=== PATIENT | female | born 1980 | race Caucasian/White ===

== ENCOUNTER → 2016-07-06 | Outpatient (CLI) | payer BC ==
[~2016-07-06] VITALS: Ht 167.6 cm; Wt 95.0 kg
[~2016-07-06] MED LIST: ALBUTEROL SULF8.5 GM IH; ALDOMET PO; ALDOMET250 MG PO; ASPIRIN325 MG PO; BLOOD PRESURE; CLINDAMYCIN HC300 MG PO; FLEXERIL10 MG PO; IBUPROFEN800 MG PO; LYRICA50 MG PO; MACROBID100 MG PO; MOBIC7.5 MG PO; MOTRIN800 MG PO; NAPROSYN500 MG PO; NOHOMEMEDS; NORCO 5/3251 TABLET PO; PERCOCET 5/31 TABLET PO; PHENERGAN-CODE120 ML PO; PRENATAL TABLE1 EAC3 PO; PRINIVIL10 MG PO; PROAIR HFA8.5 GM; PROAIR HFA8.5 GM IH; PROTONIX40 MG PO; SKELAXIN800 MG PO; SYMBICORT60 INHALAT IH; TRAMADOL HCL50 MG PO; ULTRAM50 MG PO; ZOFRAN4 MG PO
[2016-07-06 14:01] VITALS: BP 156/82
== END | disposition home or self-care (01) ==
LOC: IVINF 13:55
DX: O36.0990 Maternal care for other rhesus isoimmunization, unspecified trimester, not applicable or unspecified (principal); Z3A.00 Weeks of gestation of pregnancy not specified
CPT/HCPCS: 96372; J2790

== ENCOUNTER 2016-09-14 16:23 | Inpatient (IN) | payer BC ==
[~2016-09-14] VITALS: Ht 167.6 cm; Wt 93.0 kg
[2016-09-14 16:46] VITALS: BP 144/89
[2016-09-14 17:27] VITALS: BP 136/79
[2016-09-14 17:45] LABS: EOSINOPHIL (%) 0.6 % (0-5); EOSINOPHIL COUNT 0.1 K/uL (0-0.3); HEMATOCRIT 35.6 % (36.0-46.0); IMMATURE GRANULOCYTE (%) 0.6 % (0.0-0.7); IMMATURE GRANULOCYTE COUNT 0.1 K/uL; LYMPHOCYTE COUNT 2.5 K/uL (1.0-2.8); MCH 30.1 PG (29.0-34.0); MCHC 34.3 G/DL (30.0-36.0); MCV 87.9 FL (83-99); MONOCYTE (%) 9.2 % (3-12); MONOCYTE COUNT 1.2 K/uL (0-0.8); NEUTROPHIL (%) 69.7 % (45-76); PLATELET COUNT 229 K/uL (156-360); RBC DIS.WIDTH-CV 13.4 % (11.8-14.6); RED BLOOD COUNT 4.05 M/uL (3.80-5.20); WHITE BLOOD COUNT 12.9 K/uL (4.1-10.2)
[2016-09-14 17:51] LABS: ANION GAP 11 MEQ/L (2-14); CHLORIDE 106 MEQ/L (99-109); POTASSIUM 3.2 MEQ/L (3.7-5.4); SAMPLE HEMOLYSIS CHECK 0; SAMPLE ICTERIC CHECK 0; SAMPLE LIPEMIA CHECK 1; SODIUM 138 MEQ/L (136-147); TOTAL BILIRUBIN 0.3 MG/DL (0.0-1.0)
[2016-09-14 17:57] VITALS: BP 128/87
[2016-09-14 17:57] LABS: ALKALINE PHOSPHATASE 189 IU/L (3-129); GFR ESTIMATE (CALCULATED) > 59 mL/min/; GLUCOSE 99 mg/dL (70-99); LACTATE DEHYDROGENASE 128 IU/L (20-246); UREA NITROGEN (BUN) 6 mg/dL (9-23); URIC ACID 4.4 mg/dL (3.1-9.2)
[2016-09-14 18:10] LABS: UR CREATININE CONCENTRATION 136.2 MG/DL
[2016-09-14 18:27] VITALS: BP 128/82
[2016-09-14 18:57] VITALS: BP 127/84
[2016-09-14 21:49] VITALS: BP 135/97
[2016-09-15] VITALS (28 sets, daily range): BP systolic 100–171; BP diastolic 58–106
[2016-09-16] VITALS: BP 138/85
[2016-09-16 04:00] VITALS: BP 136/87
[2016-09-16 07:11] VITALS: BP 126/87
[2016-09-16 07:38] LABS: BASOPHIL COUNT 0.1 K/uL (0-0.1); EOSINOPHIL (%) 2.2 % (0-5); EOSINOPHIL COUNT 0.3 K/uL (0-0.3); HEMATOCRIT 32.6 % (36.0-46.0); IMMATURE GRANULOCYTE (%) 0.6 % (0.0-0.7); IMMATURE GRANULOCYTE COUNT 0.1 K/uL; MCHC 32.8 G/DL (30.0-36.0); MCV 88.3 FL (83-99); MEAN PLAT.VOLUME 11.6 uM^3 (9.5-12.4); MONOCYTE (%) 9.6 % (3-12); MONOCYTE COUNT 1.2 K/uL (0-0.8); NEUTROPHIL (%) 63.7 % (45-76); PLATELET COUNT 189 K/uL (156-360); RBC DIS.WIDTH-CV 13.2 % (11.8-14.6); RBC DIS.WIDTH-SD 43.2 % (39-53); RED BLOOD COUNT 3.69 M/uL (3.80-5.20); WHITE BLOOD COUNT 12.5 K/uL (4.1-10.2)
[2016-09-16] MEDS ORDERED: IBUPROFEN800 MG PO (09:28)
[2016-09-16 12:07] VITALS: BP 145/90
[2016-09-16 13:00] VITALS: BP 134/92
== END 2016-09-16 16:33 | disposition home or self-care (01) | DRG 775 ==
LOC: LDRP-OP 16:23 → 2WEST 16:26 → LDRP-OP 10-25 18:38
PROVIDERS: Advanced Practice Midwife
PROC: 3E033VJ Introduction of Other Hormone into Peripheral Vein, Percutaneous Approach (ICD-10-PCS; 2016-09-14)
PROC: 0HQ9XZZ Repair Perineum Skin, External Approach (ICD-10-PCS; principal; 2016-09-15)
PROC: 10907ZC Drainage of Amniotic Fluid, Therapeutic from Products of Conception, Via Natural or Artificial Opening (ICD-10-PCS; principal; 2016-09-15)
PROC: 10E0XZZ Delivery of Products of Conception, External Approach (ICD-10-PCS; principal; 2016-09-15)
PROC: 00HU33Z Insertion of Infusion Device into Spinal Canal, Percutaneous Approach (ICD-10-PCS; 2016-09-15)
PROC: 3E0R3CZ (ICD-10-PCS; 2016-09-15)
DX: O70.0 First degree perineal laceration during delivery (principal); O14.94 Unspecified pre-eclampsia, complicating childbirth; O99.214 Obesity complicating childbirth; E66.9 Obesity, unspecified; O99.52 Diseases of the respiratory system complicating childbirth; J45.909 Unspecified asthma, uncomplicated; M79.7 Fibromyalgia; O99.354 Diseases of the nervous system complicating childbirth; G43.909 Migraine, unspecified, not intractable, without status migrainosus; O99.334 Smoking (tobacco) complicating childbirth; F17.200 Nicotine dependence, unspecified, uncomplicated; Z68.30 Body mass index [BMI] 30.0-30.9, adult; Z3A.39 39 weeks gestation of pregnancy; Z37.0 Single live birth; Z79.82 Long term (current) use of aspirin
CPT/HCPCS: 80053; 82570; 83615; 84156; 84550; 85025; 85025 91; C1755; G0378; J0595; J3010; J7120; Q0169

== ENCOUNTER 2016-10-19 20:03 | Emergency (ER) | payer BC ==
[~2016-10-19] VITALS: Ht 167.6 cm; Wt 88.8 kg
[2016-10-19 23:33] LABS: HEMATOCRIT 43.6 % (36.0-46.0); MCH 28.2 PG (29.0-34.0); MCHC 32.1 G/DL (30.0-36.0); MCV 87.9 FL (83-99); MEAN PLAT.VOLUME 10.5 uM^3 (9.5-12.4); PLATELET COUNT 258 K/uL (156-360); RBC DIS.WIDTH-CV 13.9 % (11.8-14.6); RBC DIS.WIDTH-SD 44.3 % (39-53); RED BLOOD COUNT 4.96 M/uL (3.80-5.20); WHITE BLOOD COUNT 9.6 K/uL (4.1-10.2)
[2016-10-20 00:23] LABS: CHLORIDE 107 mEq/L (99-109); POTASSIUM 3.6 mEq/L (3.7-5.4); SODIUM 141 mEq/L (136-147)
[2016-10-20 00:24] LABS: GLUCOSE 98 mg/dL (70-99)
[2016-10-20 00:26] LABS: ANION GAP 9 MEQ/L (2-14)
[2016-10-20 00:28] LABS: GFR ESTIMATE (CALCULATED) > 59 mL/min/
[2016-10-20 00:53] LABS: UREA NITROGEN (BUN) 5 mg/dL (9-23)
[2016-10-20 02:45] VITALS: BP 128/68
== END 2016-10-20 02:48 | disposition home or self-care (01) ==
LOC: EME 20:03
PROVIDERS: Emergency Medicine
DX: R22.1 Localized swelling, mass and lump, neck (principal); J45.909 Unspecified asthma, uncomplicated; F17.200 Nicotine dependence, unspecified, uncomplicated; Z90.89 Acquired absence of other organs
CPT/HCPCS: 70491; 80048; 83605; 84443; 85027; 99281; 99284

== ENCOUNTER → 2017-05-30 | Outpatient (CLI) | payer BC | END | disposition home or self-care (01) | LOC: CDC 14:49 | DX: R94.31 Abnormal electrocardiogram [ECG] [EKG] (principal) | CPT/HCPCS: 93000 ==

== ENCOUNTER → 2017-06-13 | Outpatient (CLI) | payer BC ==
[~2017-06-13] VITALS: Ht 167.6 cm; Wt 99.0 kg
[~2017-06-13] MED LIST changes: +BP MED PO
[2017-06-13 14:02] VITALS: BP 142/79
== END | disposition home or self-care (01) ==
LOC: IVINF 13:55
DX: Z34.80 Encounter for supervision of other normal pregnancy, unspecified trimester (principal); Z3A.00 Weeks of gestation of pregnancy not specified
CPT/HCPCS: 96372; J2790

== ENCOUNTER 2017-08-14 05:28 | Outpatient (CLI) | payer BC ==
[~2017-08-14] VITALS: Ht 167.6 cm; Wt 106.4 kg
[2017-08-14 05:39] VITALS: BP 136/91
[2017-08-14] MEDS ORDERED: LO-DOSE ASPIRIN81 M1 PO (05:51)
[2017-08-14] MEDS ORDERED: PROCARDIA XL30 MG PO (05:51)
[2017-08-14 06:37] LABS: BILIRUBIN NEGATIVE; BLOOD NEGATIVE; COLOR YELLOW ((YELLOW)); GLUCOSE (STRIP) NEGATIVE; KETONES NEGATIVE; LEUKOCYTES NEGATIVE; NITRITE NEGATIVE; PROTEIN (STRIP) NEGATIVE; SPECIFIC GRAVITY 1.013 (1.000-1.030); UROBILINOGEN 0.2 MG/DL (0.2-1.0)
[2017-08-14 06:55] LABS: AMPHETAMINE NEGATIVE (500 ng/mL); BARBITURATES NEGATIVE (200 ng/mL); BENZODIAZEPINES NEGATIVE (150 ng/mL); BUPRENORPHINE NEGATIVE (10 ng/mL); COCAINE NEGATIVE (150 ng/mL); METHADONE NEGATIVE (200 ng/mL); METHAMPHETAMINE NEGATIVE (500 ng/mL); OPIATES (MORPHINE) NEGATIVE (100 ng/mL); OXYCODONE NEGATIVE (100 ng/mL); PHENCYCLIDINE NEGATIVE (25 ng/mL); PROPOXYPHENE NEGATIVE (300 ng/mL); THC CANNABINOIDS NEGATIVE (50 ng/mL); TRICYCLIC ANTIDEPRESSANTS NEGATIVE (300 ng/mL)
[2017-08-14 06:56] LABS: BASOPHIL (%) 0.4 % (0-1); BASOPHIL COUNT 0.1 K/uL (0-0.1); EOSINOPHIL (%) 1.6 % (0-5); EOSINOPHIL COUNT 0.2 K/uL (0-0.3); HEMATOCRIT 34.6 % (36.0-46.0); HEMOGLOBIN 11.6 G/DL (11.9-15.5); IMMATURE GRANULOCYTE (%) 0.9 % (0.0-0.7); LYMPHOCYTE (%) 17.1 % (15-42); LYMPHOCYTE COUNT 2.2 K/uL (1.0-2.8); MCH 29.6 PG (29.0-34.0); MCHC 33.5 G/DL (30.0-36.0); MCV 88.3 FL (83-99); MONOCYTE (%) 8.8 % (3-12); MONOCYTE COUNT 1.1 K/uL (0-0.8); NEUTROPHIL (%) 71.2 % (45-76); NEUTROPHIL COUNT 9.2 K/uL (1.8-6.4); NRBC (%) 0.5 /100 WBC (0-0); PLATELET COUNT 229 K/uL (156-360); RBC DIS.WIDTH-CV 13.3 % (11.8-14.6); RBC DIS.WIDTH-SD 42.9 % (39-53); RED BLOOD COUNT 3.92 M/uL (3.80-5.20); WHITE BLOOD COUNT 12.9 K/uL (4.1-10.2)
[2017-08-14 06:59] LABS: APPEARANCE CLEAR ((CLEAR)); UCUL ADDED? NO
[2017-08-14 07:02] VITALS: BP 127/79
[2017-08-14 07:03] VITALS: BP 145/96
[2017-08-14 07:23] LABS: ALBUMIN 3.2 G/DL (3.2-4.8); ALKALINE PHOSPHATASE 169 IU/L (3-129); ALT (GPT) 15 IU/L (3-49); AST (GOT) 17 IU/L (2-34); CHLORIDE 102 MEQ/L (99-109); CREATININE 0.5 MG/DL (0.6-1.3); GFR ESTIMATE (CALCULATED) > 59 mL/min/; GLUCOSE 94 mg/dL (70-99); POTASSIUM 3.6 MEQ/L (3.7-5.4); SODIUM 137 MEQ/L (136-147); TOTAL BILIRUBIN 0.2 MG/DL (0.0-1.0); UREA NITROGEN (BUN) 4 mg/dL (9-23)
[2017-08-14 07:55] VITALS: BP 121/82
[2017-08-14 08:26] LABS: UR CREATININE CONCENTRATION 100.6 MG/DL
[2017-08-14 08:38] VITALS: BP 134/83
[2017-08-14 09:31] VITALS: BP 135/85
== END 2017-08-14 12:20 | disposition home or self-care (01) ==
LOC: LDRP-OP 05:28 → 2WEST 05:29
PROVIDERS: Advanced Practice Midwife
DX: O47.03 False labor before 37 completed weeks of gestation, third trimester (principal); O16.3 Unspecified maternal hypertension, third trimester; O99.353 Diseases of the nervous system complicating pregnancy, third trimester; G43.909 Migraine, unspecified, not intractable, without status migrainosus; O15.03 Eclampsia complicating pregnancy, third trimester; O99.283 Endocrine, nutritional and metabolic diseases complicating pregnancy, third trimester; E87.6 Hypokalemia; O09.523 Supervision of elderly multigravida, third trimester; O09.893 Supervision of other high risk pregnancies, third trimester; O99.213 Obesity complicating pregnancy, third trimester; E66.9 Obesity, unspecified; O99.513 Diseases of the respiratory system complicating pregnancy, third trimester; J45.909 Unspecified asthma, uncomplicated; Z79.82 Long term (current) use of aspirin; O99.333 Smoking (tobacco) complicating pregnancy, third trimester; F17.200 Nicotine dependence, unspecified, uncomplicated; O99.89 Other specified diseases and conditions complicating pregnancy, childbirth and the puerperium; M79.7 Fibromyalgia; Z3A.36 36 weeks gestation of pregnancy
CPT/HCPCS: 59025; 80053; 81003; 82570; 84156; 85025; G0378; J0702; J7120

== ENCOUNTER 2017-08-18 19:39 | Inpatient (IN) | payer BC ==
[~2017-08-18] VITALS: Ht 170.2 cm; Wt 101.4 kg
[~2017-08-18 19:39] MED LIST changes: +LO-DOSE ASPIRIN81 M1 PO; +PROCARDIA XL30 MG PO
[2017-08-18 20:01] VITALS: BP 164/96
[2017-08-18 20:13] VITALS: BP 151/99
[2017-08-18 20:40] VITALS: BP 137/90
[2017-08-18 21:04] LABS: BASOPHIL (%) 0.3 % (0-1); EOSINOPHIL (%) 0.6 % (0-5); EOSINOPHIL COUNT 0.1 K/uL (0-0.3); HEMATOCRIT 35.9 % (36.0-46.0); HEMOGLOBIN 12.2 G/DL (11.9-15.5); IMMATURE GRANULOCYTE (%) 0.5 % (0.0-0.7); LYMPHOCYTE (%) 16.6 % (15-42); LYMPHOCYTE COUNT 2.3 K/uL (1.0-2.8); MCH 29.1 PG (29.0-34.0); MCV 85.7 FL (83-99); MONOCYTE (%) 9.1 % (3-12); MONOCYTE COUNT 1.3 K/uL (0-0.8); NEUTROPHIL (%) 72.9 % (45-76); NEUTROPHIL COUNT 10.1 K/uL (1.8-6.4); PLATELET COUNT 258 K/uL (156-360); RBC DIS.WIDTH-CV 13.1 % (11.8-14.6); RBC DIS.WIDTH-SD 40.5 % (39-53); RED BLOOD COUNT 4.19 M/uL (3.80-5.20); WHITE BLOOD COUNT 13.8 K/uL (4.1-10.2)
[2017-08-18 21:12] LABS: ALBUMIN 3.5 g/dL (3.2-4.8); CHLORIDE 105 mEq/L (99-109); SODIUM 137 mEq/L (136-147)
[2017-08-18 21:14] LABS: GLUCOSE 101 mg/dL (70-99)
[2017-08-18 21:15] LABS: TOTAL PROTEIN 6.7 g/dL (6.4-8.3)
[2017-08-18 21:15] LABS: APPEARANCE SL.HAZY ((CLEAR)); BILIRUBIN NEGATIVE; BLOOD NEGATIVE; COLOR YELLOW ((YELLOW)); GLUCOSE (STRIP) NEGATIVE; KETONES NEGATIVE; LEUKOCYTES NEGATIVE; NITRITE NEGATIVE; PROTEIN (STRIP) 30; UROBILINOGEN 0.2 MG/DL (0.2-1.0)
[2017-08-18 21:16] LABS: TOTAL BILIRUBIN 0.2 mg/dL (0.0-1.0)
[2017-08-18 21:18] LABS: ALKALINE PHOSPHATASE 203 IU/L (3-129); CREATININE 0.6 mg/dL (0.6-1.3); GFR ESTIMATE (CALCULATED) > 59 mL/min/
[2017-08-18 21:19] LABS: UREA NITROGEN (BUN) 4 mg/dL (9-23)
[2017-08-18 21:20] LABS: AST (GOT) 22 IU/L (2-34)
[2017-08-18 21:21] LABS: ALT (GPT) 22 IU/L (3-49); URIC ACID 3.3 mg/dL (3.1-9.2)
[2017-08-18 21:23] LABS: BACTERIA RARE /HPF; EPITHELIAL CELLS 2+ /HPF; MUCUS TRACE /LPF; RED BLOOD CELLS 0-5 /HPF (0-5); UCUL ADDED? NO; WHITE BLOOD CELLS 0-5 /HPF (0-5)
[2017-08-18 21:23] LABS: AMPHETAMINE NEGATIVE (500 ng/mL); BARBITURATES NEGATIVE (200 ng/mL); BENZODIAZEPINES NEGATIVE (150 ng/mL); BUPRENORPHINE NEGATIVE (10 ng/mL); COCAINE NEGATIVE (150 ng/mL); METHADONE NEGATIVE (200 ng/mL); METHAMPHETAMINE NEGATIVE (500 ng/mL); OPIATES (MORPHINE) NEGATIVE (100 ng/mL); OXYCODONE NEGATIVE (100 ng/mL); PHENCYCLIDINE NEGATIVE (25 ng/mL); PROPOXYPHENE NEGATIVE (300 ng/mL); THC CANNABINOIDS NEGATIVE (50 ng/mL); TRICYCLIC ANTIDEPRESSANTS NEGATIVE (300 ng/mL)
[2017-08-18 21:30] VITALS: BP 134/87
[2017-08-18 22:07] VITALS: BP 147/85
[2017-08-18 22:07] LABS: LACTATE DEHYDROGENASE 216 IU/L (20-246)
[2017-08-18 22:55] VITALS: BP 141/90
[2017-08-19] VITALS (15 sets, daily range): BP systolic 96–136; BP diastolic 52–74
[2017-08-19 07:59] LABS: BASOPHIL (%) 0.3 % (0-1); BASOPHIL COUNT 0.1 K/uL (0-0.1); EOSINOPHIL (%) 0.5 % (0-5); EOSINOPHIL COUNT 0.1 K/uL (0-0.3); HEMATOCRIT 32.3 % (36.0-46.0); HEMOGLOBIN 10.7 G/DL (11.9-15.5); IMMATURE GRANULOCYTE (%) 0.4 % (0.0-0.7); LYMPHOCYTE (%) 16.8 % (15-42); LYMPHOCYTE COUNT 3.2 K/uL (1.0-2.8); MCH 28.7 PG (29.0-34.0); MCHC 33.1 G/DL (30.0-36.0); MCV 86.6 FL (83-99); MONOCYTE (%) 8.8 % (3-12); MONOCYTE COUNT 1.7 K/uL (0-0.8); NEUTROPHIL (%) 73.2 % (45-76); NEUTROPHIL COUNT 13.9 K/uL (1.8-6.4); PLATELET COUNT 237 K/uL (156-360); RBC DIS.WIDTH-CV 13.2 % (11.8-14.6); RBC DIS.WIDTH-SD 41.9 % (39-53); RED BLOOD COUNT 3.73 M/uL (3.80-5.20); WHITE BLOOD COUNT 18.9 K/uL (4.1-10.2)
[2017-08-19 08:33] LABS: ALBUMIN 2.8 G/DL (3.2-4.8); ALKALINE PHOSPHATASE 144 IU/L (3-129); ALT (GPT) 15 IU/L (3-49); AST (GOT) 17 IU/L (2-34); CHLORIDE 103 MEQ/L (99-109); CREATININE 0.5 MG/DL (0.6-1.3); GFR ESTIMATE (CALCULATED) > 59 mL/min/; GLUCOSE 105 mg/dL (70-99); POTASSIUM 3.4 MEQ/L (3.7-5.4); SODIUM 132 MEQ/L (136-147); TOTAL BILIRUBIN 0.3 MG/DL (0.0-1.0); TOTAL PROTEIN 5.3 G/DL (6.4-8.3); UREA NITROGEN (BUN) 3 mg/dL (9-23)
[2017-08-20 02:20] VITALS: BP 122/78
[2017-08-20 08:52] VITALS: BP 125/77
[2017-08-20] MEDS ORDERED: ENDOCET 5-3251 EACH PO (08:55)
[2017-08-20] MEDS ORDERED: IBUPROFEN800 MG PO (08:55)
[2017-08-20 16:47] VITALS: BP 143/87
== END 2017-08-20 19:45 | disposition home or self-care (01) | DRG 765 ==
LOC: LDRP-OP 19:39 → 2WEST 19:41 → LDRP-OP 10-12 12:50
PROVIDERS: Obstetrics & Gynecology
DX: O64.8XX0 Obstructed labor due to other malposition and malpresentation, not applicable or unspecified (principal); Z30.2 Encounter for sterilization; O11.4 Pre-existing hypertension with pre-eclampsia, complicating childbirth; O76 Abnormality in fetal heart rate and rhythm complicating labor and delivery; O22.40 Hemorrhoids in pregnancy, unspecified trimester; Z3A.36 36 weeks gestation of pregnancy; Z37.0 Single live birth; R19.7 Diarrhea, unspecified; R42 Dizziness and giddiness; O99.89 Other specified diseases and conditions complicating pregnancy, childbirth and the puerperium; M79.7 Fibromyalgia; O99.214 Obesity complicating childbirth; E66.9 Obesity, unspecified; Z68.32 Body mass index [BMI] 32.0-32.9, adult; O99.353 Diseases of the nervous system complicating pregnancy, third trimester; G43.909 Migraine, unspecified, not intractable, without status migrainosus; O99.334 Smoking (tobacco) complicating childbirth; F17.210 Nicotine dependence, cigarettes, uncomplicated; O99.52 Diseases of the respiratory system complicating childbirth; J45.909 Unspecified asthma, uncomplicated; Z82.49 Family history of ischemic heart disease and other diseases of the circulatory system; Z83.3 Family history of diabetes mellitus
CPT/HCPCS: 80053; 81003; 82570; 83615; 84156; 84550; 85025; 86850; 86870; 86900; 86901; 86905; 86920; 88302; 88304; J0690; J2274; J3475; J7120